=== PATIENT | female | born 1930 | race Caucasian/White ===

== ENCOUNTER 2017-01-04 16:27 | Emergency (ER) | payer MEDICARE ==
[2017-01-04 16:44] VITALS: BP 205/102
[2017-01-04] MEDS ORDERED: Acetaminophen TAB* 325 MG PO ONE (16:44)
[2017-01-04] MEDS ORDERED: NS 0.9% 1000 ML*IV.FLUID IV ONE (16:45)
--- NOTE | 2017-01-04 16:59 | UC ---
Headache HPI - HPI Summary HPI Summary: Weakness, headache, "cannot walk," starting this morning. She states she is generally healthy. She awoke with the headache. no focal neurologic defecits. - History Of Current Complaint Chief Complaint: UCGeneralIllness Stated Complaint: WEAK Time Seen by Provider: 01/04/17 16:33 Hx Obtained From: Patient ?: No Onset/Duration: Gradual Onset Initially Headache Was: Moderate Timing: Constant, Hours Character: Dull, Pressure Location of Headache: Diffuse, Frontal Aggravating Factor(s): Nothing Allevating Factor(s): Nothing Associated Signs And Symptoms: Positive: Dizziness. Negative: Neck Pain, Neck Stiffness, Decreased LOC, Visual Changes - Allergies/Home Medications Allergies/Adverse Reactions: Allergies Allergy/AdvReac Type Severity Reaction Status Date / Time No Known Allergies Allergy Verified 10/01/15 18:24 PMH/Surg Hx/FS Hx/Imm Hx Previously Healthy: Yes - she is a poor historian and states she has poor memory. - Surgical History Surgical History: None Surgery Procedure, Year, and Place: intestinal surgery 8 years ago. spinal surgery within last 10 years - Family History Known Family History: Positive: Unknown - Social History Alcohol Use: Rare Substance Use Type: None Smoking Status (MU): Never Smoked Tobacco Review of Systems Neurological: Headache, Weakness All Other Systems Reviewed And Are Negative: Yes Physical Exam Triage Information Reviewed: Yes Appearance: Well-Nourished, Pain Distress - she is holding her head with both hands but remains jovial and alert. Vital Signs: Initial Vital Signs Temp 101.5 F 01/04/17 16:38 Pulse 94 01/04/17 16:38 Resp 22 01/04/17 16:38 BP 205/102 01/04/17 16:38 Pulse Ox 100 01/04/17 16:38 Vital Signs Reviewed: Yes Eye Exam: Normal Eyes: Positive: Conjunctiva Clear ENT: Positive: Pharynx normal Neck exam: Normal Neck: Positive: Supple, Nontender, No Lymphadenopathy. Negative: Nuchal Rigidity Respiratory Exam: Normal Respiratory: Positive: Chest non-tender, Lungs clear, Normal breath sounds, No respiratory distress, No accessory muscle use. Negative: Respiratory distress, Decreased breath sounds, Accessory muscle use, Crackles, Rhonchi, Stridor, Wheezing Cardiovascular: Positive: No Murmur, Pulses Normal, Tachycardia Abdominal Exam: Normal Abdomen Description: Positive: Nontender, No Organomegaly, Soft, Distended Musculoskeletal Exam: Normal Musculoskeletal: Positive: Strength Intact, ROM Intact, No Edema Neurological Exam: Other - she has poor recollection of the last few days. Neurological: Positive: Alert, Muscle Tone Normal Skin: Negative: rashes Headache Course/Dx - Course Course Of Treatment: possible sepsis. positive sirs criteria with fever, confusion and HR > 90. We will transfer to ED. There are signs of cardiac strain on EKG. BP very elevated. - Differential Dx/Diagnosis Provider Diagnoses: headache. sirs criteria. - Physician Notifications Instructed by Provider To: Other - dr trevino and [facility] ED. Discharge - Discharge Plan Condition: Guarded Disposition: HOME Referrals: Carroll Nunn MD [Primary Care Provider] - Additional Instructions: transfer to the ED immediately.
== END 2017-01-04 17:01 | disposition home or self-care (01) ==
LOC: UCCORT 16:27
DX: R51 Headache (principal)
CPT/HCPCS: 93005; 99213; A9270-GY; G0463

== ENCOUNTER 2018-01-13 09:27 | Emergency (ER) | payer MEDICARE ==
[2018-01-13 10:13] VITALS: BP 162/79
[2018-01-13] MEDS ORDERED: Acetaminophen TAB* 325 MG PO ONE (10:33)
--- NOTE | 2018-01-13 11:05 | UC ---
Throat Pain/Nasal Cam HPI - HPI Summary HPI Summary: Pt is accompanied by daughter and caregiver. pt reports c/o sinus pressure, nasal congestion, and LEYVA in "center of forehead" that began yesterday. Pt reports generalized fatigue. Caregivers report that pt has "no short term memory" and has limited reliability as historian. Caregiver reports that pt has been eating and drinking per usual intake . - History of Current Complaint Chief Complaint: UCRespiratory Stated Complaint: SINUS PRESSURE Time Seen by Provider: 01/13/18 10:12 Hx Obtained From: Patient, Family/Microphone Operator Hx From Patient Unobtainable Due To: Dementia ?: No Severity: Moderate Pain Intensity: 3 Associated Signs & Symptoms: Positive: Sinus Discomfort - Epiglottits Risk Factors Epiglottis Risk Factors: Negative - Allergies/Home Medications Allergies/Adverse Reactions: Allergies Allergy/AdvReac Type Severity Reaction Status Date / Time ANTIDEPRESANTS, NARCOTICS Allergy Unknown Agitation Uncoded 01/13/18 10:15 PMH/Surg Hx/FS Hx/Imm Hx Previously Healthy: Yes - dementia - Surgical History Surgical History: None Surgery Procedure, Year, and Place: intestinal surgery 8 years ago. spinal surgery within last 10 years - Family History Known Family History: Positive: Cardiac Disease - Social History Occupation: Retired Lives: With Family Alcohol Use: Rare Substance Use Type: None Smoking Status (MU): Never Smoked Tobacco Have You Smoked in the Last Year: No - Immunization History Vaccination Up to Date: Yes Review of Systems Constitutional: Fatigue Skin: Negative Eyes: Negative ENT: Sinus Congestion, Sinus Pain/Tenderness Cardiovascular: Negative Gastrointestinal: Negative Genitourinary: Negative Motor: Negative Neurovascular: Negative Musculoskeletal: Myalgia Neurological: Headache Psychological: Negative Is Patient Immunocompromised?: No All Other Systems Reviewed And Are Negative: Yes Physical Exam Triage Information Reviewed: Yes Completion Of Physical Exam Limited Due To: Dementia Appearance: Ill-Appearing Vital Signs: Initial Vital Signs Temp 98.5 F 01/13/18 10:02 Pulse 87 01/13/18 10:02 Resp 16 01/13/18 10:02 BP 162/79 01/13/18 10:02 Pulse Ox 96 01/13/18 10:02 Vital Signs Reviewed: Yes Eye Exam: Normal ENT Exam: Other ENT: Positive: Nasal congestion, Sinus tenderness Dental Exam: Normal Neck exam: Normal Respiratory Exam: Normal Cardiovascular Exam: Normal Cardiovascular: Positive: RRR, No Murmur Abdominal Exam: Normal Musculoskeletal Exam: Normal Neurological: Positive: Alert Psychological Exam: Normal Psychological: Positive: Normal Response To Family Skin Exam: Normal Diagnostics - Laboratory Diagnostic Studies Completed/Ordered: rapid flu: negative Throat Pain/Nasal Course/Dx - Differential Dx/Diagnosis Differential Diagnosis/HQI/PQRI: Influenza, Sinusitis, URI Provider Diagnoses: sinusitis Discharge - Sign-Out/Discharge Documenting (check all that apply): Patient Departure All imaging exams completed and their final reports reviewed: No Studies - Discharge Plan Condition: Stable Disposition: HOME Prescriptions: Amoxicillin PO (*) [Amoxicillin 875 MG (*)] 875 mg PO Q12H #20 tab Patient Education Materials: Sinusitis (ED), Weakness (ED) Referrals: Carroll Nunn MD [Primary Care Provider] - As Soon As Possible Additional Instructions: Please note, if symptoms worsen please go directly to the closest Emergency Room as soon as possible. Coricidin Brand Cold and Cough OTC - Billing Disposition and Condition Condition: STABLE Disposition: Home
== END 2018-01-13 11:47 | disposition home or self-care (01) ==
LOC: UCCORT 09:27
DX: J32.9 Chronic sinusitis, unspecified (principal); F03.90 Unspecified dementia, unspecified severity, without behavioral disturbance, psychotic disturbance, mood disturbance, and anxiety; Z88.8 Allergy status to other drugs, medicaments and biological substances
CPT/HCPCS: 81003; 99202; A9270-GY; G0463

== ENCOUNTER 2018-07-03 10:15 | Emergency (ER) | payer MEDICARE ==
[2018-07-03 10:38] VITALS: BP 171/84
--- NOTE | 2018-07-03 10:54 | UC ---
General HPI - HPI Summary HPI Summary: 87 -year-old female with her adult son. He brought her in because she has been on penicillin for an ear infection and he wanted that checked. She has also been more fatigued than normal. She does have short-term memory loss and is unsure why she is even here. The son states the last time she was seen for this type of fatigue she had a urinary tract infection. He states she has not had any complaints of chest pain no difficulty breathing no recent cold symptoms no urinary complaints. The son also states she would not remember if she had any of these symptoms. - History of Current Complaint Chief Complaint: UCGeneralIllness Stated Complaint: FATIGUE,EARS Time Seen by Provider: 07/03/18 10:37 Hx Obtained From: Family/Saddle And Side Wire Stitcher - Told son is with the patient today. Onset/Duration: Gradual Onset - Fatigue over the past 2 days. Timing: Constant Onset Severity: Mild Current Severity: Mild Pain Intensity: 0 - Allergy/Home Medications Allergies/Adverse Reactions: Allergies Allergy/AdvReac Type Severity Reaction Status Date / Time ANTIDEPRESANTS, NARCOTICS Allergy Unknown Agitation Uncoded 01/13/18 10:15 Home Medications: Home Medications Penicillin VK 500 MG TAB(NF) [Penicillin VK 500 mg Tab] 500 mg PO TID 07/03/18 [ History Confirmed 07/03/18] PMH/Surg Hx/FS Hx/Imm Hx Previously Healthy: Yes - Short term memory loss - Surgical History Surgical History: None Surgery Procedure, Year, and Place: intestinal surgery 8 years ago. AV Fistula : spinal surgery within last 10 years - Family History Known Family History: Positive: Unknown, Cardiac Disease - Social History Lives: Assisted Living - Son states caregivers come into the home to care for her and there is someone there 24 hours a day. Alcohol Use: Rare Substance Use Type: None Smoking Status (MU): Never Smoked Tobacco Have You Smoked in the Last Year: No - Immunization History Vaccination Up to Date: Yes Review of Systems All Other Systems Reviewed And Are Negative: Yes Neurological: Positive: Weakness - Son is giving the history as patient has short-term memory loss. The son stated he has not noted any fever or chills, no symptoms of illness other than she seems a little more weak than usual. She has no complaints today. Is Patient Immunocompromised?: No Physical Exam Triage Information Reviewed: Yes Appearance: Well-Appearing, No Pain Distress, Well-Nourished Vital Signs: Initial Vital Signs Temp 98 F 07/03/18 10:32 Pulse 75 07/03/18 10:32 Resp 20 07/03/18 10:32 BP 171/84 07/03/18 10:32 Pulse Ox 100 07/03/18 10:32 Vital Signs Reviewed: Yes Eye Exam: Normal ENT: Positive: Normal ENT inspection, Hearing grossly normal, Pharynx normal, TMs normal, Uvula midline Neck: Positive: Supple, Nontender, No Lymphadenopathy Respiratory: Positive: Lungs clear, Normal breath sounds, No respiratory distress, No accessory muscle use Cardiovascular: Positive: RRR, No Murmur, Pulses Normal, Brisk Capillary Refill Abdomen Description: Positive: Nontender, No Organomegaly, Soft Bowel Sounds: Positive: Present Neurological: Positive: Other: - PERRLA, EOMI CN II-XII intact, good arm and leg strength bilaterally. Normal dystidiokinesia Psychological: Positive: Normal Response To Family Skin Exam: Normal Course/Dx - Course Course Of Treatment: Chest x-ray: 2 views of the chest including dual energy PA views demonstrate no mediastinal shift. Heart is of normal size and sedation. Lung cool appear hyperinflated. No pleural fluid, pneumonia or pneumothorax is noted. No prior study is available for comparison. IMPRESSION: No active cardiopulmonary disease is noted. EKG: No changes compared to 01/04/[address] Feliz and myself. Urinalysis was negative. Patient ambulated upon discharged with her son assisting her. - Diagnoses Provider Diagnosis: Weakness - Physician Notifications Discussed Patient Care With: Anthony Feliz Time Discussed With Above Provider: 11:00 Discharge - Sign-Out/Discharge Documenting (check all that apply): Patient Departure All imaging exams completed and their final reports reviewed: Yes - Discharge Plan Condition: Fair Disposition: HOME Patient Education Materials: Weakness (ED) Referrals: Carroll Nunn MD [Primary Care Provider] - Additional Instructions: Follow-up with your primary care provider if no improvement in symptoms over the next few days. Go to the emergency room if he develops any chest pain, difficulty breathing, weakness on one side or another or any further concerns. - Billing Disposition and Condition Condition: FAIR Disposition: Home
== END 2018-07-03 12:05 | disposition home or self-care (01) ==
LOC: UCCORT 10:15
DX: R53.1 Weakness (principal); R53.83 Other fatigue; R41.3 Other amnesia; Z88.5 Allergy status to narcotic agent; Z88.8 Allergy status to other drugs, medicaments and biological substances
CPT/HCPCS: 71046; 81003; 93005; 99211; G0463